=== PATIENT | female | born 1995 | race American Indian/Alaskan Native ===

== ENCOUNTER 2019-12-21 08:46 | Emergency (ER) | payer SELFPAY ==
[2019-12-21] MEDS ORDERED: METOCLOPRAMIDE 10 MG/2 ML INJ IV ONE (09:09)
[2019-12-21] MEDS ORDERED: METOCLOPRAMIDE 10 MG/2 ML INJ ONE (09:10)
[2019-12-21 10:49] LABS: Basophils % (Auto) 0.3 % (0.0-1.8); Eosinophils % (Auto) 0.1 % (0.0-4.3); Hemoglobin 12.3 gm/dl (10.1-14.3); Lymphocytes # (Auto) 0.6 K/mm3 (1.2-5.4); Lymphocytes % (Auto) 7.1 % (13.4-35.0); Mean Corpuscular HGB Conc 32 % (30-34); Mean Corpuscular Volume 86 fl (79-97); Monocytes # (Auto) 0.4 K/mm3 (0.0-0.8); Monocytes % (Auto) 5.1 % (0.0-7.3); Platelet Count 203 K/mm3 (140-440); Red Blood Count 4.53 M/mm3 (3.65-5.03); Red Cell Distribution Width 14.7 % (13.2-15.2)
[2019-12-21 11:09] LABS: Alanine Aminotransferase 10 units/L (7-56); Albumin 4.6 g/dL (3.9-5); BUN/Creatinine Ratio 12; Blood Urea Nitrogen 7 mg/dL (7-17); Calcium 9.4 mg/dL (8.4-10.2); Hemolysis Index 2
[2019-12-21] MEDS ORDERED: KETOROLAC 30 MG/1 ML INJ IV ONE (11:15)
--- NOTE | 2019-12-21 11:17 | Emergency Department Report ---
ED Abdominal Pain HPI - General Chief Complaint: Abdominal Pain Stated Complaint: ABD PAIN PUI?: No Time Seen by Provider: 12/21/19 10:13 Source: patient Mode of arrival: Wheelchair Limitations: No Limitations - History of Present Illness Initial Comments: This is a 24-year-old female presents ED complaining of lower pelvic pain x2 days. Patient states that since yesterday she is also had some intermittent nausea vomiting and diarrhea. Patient denies eating any unusual meals. Patient does note she has a history of ovarian cyst and is unsure if that is what she is having pelvic pain. Patient denies vaginal discharge, dysuria. Patient states last menstrual period was and currently on her cycle. MD Complaint: abdominal pain - Related Data Previous Rx's Medication Instructions Recorded Last Taken Type Ondansetron [Zofran Odt] 4 mg PO TID #9 tab.rapdis 08/03/15 Unknown Rx traMADoL [Ultram 50 MG tab] 50 mg PO Q6HR PRN #20 tablet 08/03/15 Unknown Rx Ondansetron [Zofran ODT TAB] 8 mg PO Q12HR #20 tab.rapdis 12/21/19 Unknown Rx Allergies Allergy/AdvReac Type Severity Reaction Status Date / Time No Known Allergies Allergy Unverified 08/03/15 07:23 ED Review of Systems ROS: Stated complaint: ABD PAIN Other details as noted in HPI Comment: All other systems reviewed and negative ED Past Medical Hx - Past Medical History Previous Medical History?: Yes Additional medical history: OVARIAN CYST - Surgical History Past Surgical History?: No - Social History Smoking Status: Never Smoker Substance Use Type: None - Medications Home Medications: Home Medications Medication Instructions Recorded Confirmed Last Taken Type Ondansetron [Zofran Odt] 4 mg PO TID #9 tab.rapdis 08/03/15 Unknown Rx traMADoL [Ultram 50 MG tab] 50 mg PO Q6HR PRN #20 tablet 08/03/15 Unknown Rx Ondansetron [Zofran ODT TAB] 8 mg PO Q12HR #20 tab.rapdis 12/21/19 Unknown Rx ED Physical Exam - General Limitations: No Limitations General appearance: alert, in no apparent distress - Head Head exam: Present: atraumatic, normocephalic - Eye Eye exam: Present: normal appearance - ENT ENT exam: Present: mucous membranes moist - Neck Neck exam: Present: normal inspection - Respiratory Respiratory exam: Present: normal lung sounds bilaterally. Absent: respiratory distress - Cardiovascular Cardiovascular Exam: Present: regular rate, normal rhythm. Absent: systolic murmur, diastolic murmur, rubs, gallop - GI/Abdominal GI/Abdominal exam: Present: soft, normal bowel sounds. Absent: distended, tenderness, guarding, mass, bruit - Extremities Exam Extremities exam: Present: normal inspection, full ROM - Back Exam Back exam: Present: normal inspection - Neurological Exam Neurological exam: Present: alert, oriented X3 - Psychiatric Psychiatric exam: Present: normal affect, normal mood - Skin Skin exam: Present: warm, dry, intact, normal color. Absent: rash ED Course Vital Signs 12/21/19 12/21/19 12/21/19 08:48 10:57 11:39 Temperature 97.8 F Pulse Rate 91 H Respiratory 18 18 18 Rate Blood Pressure 121/80 O2 Sat by Pulse 97 98 Oximetry ED Medical Decision Making - Lab Data Result diagrams: 12/21/19 10:26 12/21/19 10:26 Laboratory Last Values WBC 8.0 K/mm3 (4.5-11.0) 12/21/19 10:26 RBC 4.53 M/mm3 (3.65-5.03) 12/21/19 10:26 Hgb 12.3 gm/dl (10.1-14.3) 12/21/19 10:26 Hct 39.0 % (30.3-42.9) 12/21/19 10:26 MCV 86 fl (79-97) 12/21/19 10:26 MCH 27 pg (28-32) L 12/21/19 10:26 MCHC 32 % (30-34) 12/21/19 10:26 RDW 14.7 % (13.2-15.2) 12/21/19 10:26 Plt Count 203 K/mm3 (140-440) 12/21/19 10:26 Lymph % (Auto) 7.1 % (13.4-35.0) L 12/21/19 10:26 [place] % (Auto) 5.1 % (0.0-7.3) 12/21/19 10:26 Eos % (Auto) 0.1 % (0.0-4.3) 12/21/19 10:26 Baso % (Auto) 0.3 % (0.0-1.8) 12/21/19 10:26 Lymph # 0.6 K/mm3 (1.2-5.4) L 12/21/19 10:26 [place] # 0.4 K/mm3 (0.0-0.8) 12/21/19 10:26 Eos # 0.0 K/mm3 (0.0-0.4) 12/21/19 10:26 Baso # 0.0 K/mm3 (0.0-0.1) 12/21/19 10:26 Seg Neutrophils % 87.4 % (40.0-70.0) H 12/21/19 10:26 Seg Neutrophils # 7.0 K/mm3 (1.8-7.7) 12/21/19 10:26 Sodium 142 mmol/L (137-145) 12/21/19 10:26 Potassium 3.8 mmol/L (3.6-5.0) 12/21/19 10:26 Chloride 106.0 mmol/L (98-107) 12/21/19 10:26 Carbon Dioxide 22 mmol/L (22-30) 12/21/19 10:26 Anion Gap 18 mmol/L 12/21/19 10:26 BUN 7 mg/dL (7-17) 12/21/19 10:26 Creatinine 0.6 mg/dL (0.7-1.2) L 12/21/19 10:26 Estimated GFR > 60 ml/min 12/21/19 10:26 BUN/Creatinine Ratio 12 % 12/21/19 10:26 Glucose 110 mg/dL (65-100) H 12/21/19 10:26 Calcium 9.4 mg/dL (8.4-10.2) 12/21/19 10:26 Total Bilirubin 0.30 mg/dL (0.1-1.2) 12/21/19 10:26 AST 16 units/L (5-40) 12/21/19 10:26 ALT 10 units/L (7-56) 12/21/19 10:26 Alkaline Phosphatase 54 units/L (35-129) 12/21/19 10:26 Total Protein 6.9 g/dL (6.3-8.2) 12/21/19 10:26 Albumin 4.6 g/dL (3.9-5) 12/21/19 10:26 Albumin/Globulin Ratio 2.0 % 12/21/19 10:26 Lipase 26 units/L (13-60) 12/21/19 10:26 HCG, Qual Negative (Negative) 12/21/19 10:26 - Medical Decision Making 24-year-old female presents with lower abdominal pain most likely due to gastroenteritis. All labs are within normal limits, urinalysis negative. I discussed all findings with the patient. I discussed with patient to increase hydration throughout the day. Vital signs are normal. She is in no acute distress. Patient had no vomiting episode in the ED. Discussed follow-up with primary care physician within 3 days. Discussed with patient to return to the ED immediately if any worsening s ymptoms. Critical care attestation.: If time is entered above; I have spent that time in minutes in the direct care of this critically ill patient, excluding procedure time. ED Disposition Clinical Impression: Gastroenteritis Disposition: DC-01 TO HOME OR SELFCARE Is pt being admited?: No Does the pt Need Aspirin: No Condition: Stable Instructions: Gastroenteritis (ED), Acute Nausea and Vomiting (ED), Abdominal Pain (ED) Additional Instructions: Make sure to follow up with the primary care physician as discussed. Take all your medications as you've been prescribed. If you have any worsening symptoms or develop new symptoms please return to ED immediately. Prescriptions: Ondansetron [Zofran ODT TAB] 8 mg PO Q12HR #20 tab.hong Referrals: PRIMARY CARE, [Primary Care Provider] - 3-5 Days [facility] [Outside] - 3-5 Days [facility] [Outside] - 3-5 Days Forms: Work/School Release Form(ED) Time of Disposition: 11:16
[2019-12-21 13:12] LABS: Amorphous Crystals,Urine 1+; Bilirubin,Urine NEG (Negative); Blood,Urine MOD (Negative); Color,Urine Yellow (Yellow); Mucus,Urine 3+ /HPF; Protein,Urine <15 mg/dL mg/dL (Negative); Urobilinogen,Urine < 2.0 mg/dL (<2.0)
[2019-12-21 13:59] VITALS: BP 105/65
== END 2019-12-21 13:36 | disposition home or self-care (01) ==
LOC: ED 08:46
DX: K52.9 Noninfective gastroenteritis and colitis, unspecified (principal); Z79.899 Other long term (current) drug therapy
CPT/HCPCS: 36415; 80053; 81001; 83690; 84703; 85025; 96374; 96375; 99283; J1885; J2765